=== PATIENT | male | born 1955 | race African-American/Black ===

== ENCOUNTER 2016-10-22 11:14 | Inpatient (IN) | payer BC ==
[~2016-10-22] VITALS: Ht 188 cm; Wt 122.4 kg
[2016-10-22 12:14] LABS: EOSINOPHIL (%) 2.2 % (0-5); EOSINOPHIL COUNT 0.1 K/uL (0-0.3); HEMATOCRIT 37.8 % (38.0-50.0); IMMATURE GRANULOCYTE (%) 0.6 % (0.0-0.7); INSTRUMENT ABS NEUTROPHIL CT 3.8 K/uL; LYMPHOCYTE COUNT 1.1 K/uL (1.0-2.8); MCH 29.5 PG (29.0-34.0); MCHC 34.4 G/DL (30.0-36.0); MCV 85.7 FL (86-99); MEAN PLAT.VOLUME 9.7 uM^3 (9.0-12.4); MONOCYTE (%) 4.9 % (3-12); MONOCYTE COUNT 0.3 K/uL (0-0.8); NEUTROPHIL (%) 71.2 % (45-76); NEUTROPHIL COUNT 3.8 K/uL (1.8-6.4); PLATELET COUNT 213 K/uL (156-360); RBC DIS.WIDTH-CV 13.2 % (11.8-14.6); RBC DIS.WIDTH-SD 41.7 % (39-53); RED BLOOD COUNT 4.41 M/uL (4.00-5.50); WHITE BLOOD COUNT 5.4 K/uL (4.1-10.2)
[2016-10-22 12:25] LABS: AMYLASE 119 IU/L (1-118); CHLORIDE 107 mEq/L (99-109); POTASSIUM 4.6 mEq/L (3.7-5.4); SODIUM 137 mEq/L (136-147)
[2016-10-22 12:27] LABS: GLUCOSE 100 mg/dL (70-99)
[2016-10-22 12:28] LABS: ANION GAP 7 MEQ/L (2-14)
[2016-10-22 12:30] LABS: GFR ESTIMATE (CALCULATED) > 59 mL/min/; SERUM ETHYL ALCOHOL < 10 mg/dL
[2016-10-22 12:31] LABS: UREA NITROGEN (BUN) 11 mg/dL (9-23)
[2016-10-22 12:33] LABS: LIPASE 201 U/L (1.0-51.0)
[2016-10-22] MEDS ORDERED: METFORMIN HCL500 MG PO (13:15)
[2016-10-22] MEDS ORDERED: LISINOPRIL40 MG PO (13:15)
[2016-10-22] MEDS ORDERED: SIMVASTATIN40 MG PO (13:16)
[2016-10-22 18:39] VITALS: BP 177/100
[2016-10-22 19:58] VITALS: BP 167/99
[2016-10-22 23:07] LABS: POINT-OF-CARE METER ID UU14149397
[2016-10-23] VITALS (7 sets, daily range): BP systolic 120–200; BP diastolic 76–106
[2016-10-23 00:51] LABS: ADD MIUA? NO; BILIRUBIN NEGATIVE; BLOOD NEGATIVE; COLOR YELLOW ((YELLOW)); GLUCOSE (STRIP) NEGATIVE; KETONES NEGATIVE; LEUKOCYTES NEGATIVE; NITRITE NEGATIVE; PROTEIN (STRIP) NEGATIVE; SPECIFIC GRAVITY 1.027 (1.000-1.030); UCUL ADDED? NO; UROBILINOGEN 0.2 MG/DL (0.2-1.0)
[2016-10-23 05:42] LABS: AMPHETAMINES QUANT VALUE 0 NG/ML; BARBITUATES QUANT VALUE 0 NG/ML; BENZODIAZEPINES QUANT VALUE 0 NG/ML; BENZODIAZEPINES, URINE SCREEN Negative (200 ng/mL); PHENCYCLIDINE QUANT VALUE 0 NG/ML
[2016-10-23 06:35] LABS: HEMATOCRIT 33.6 % (38.0-50.0); MCH 30.4 PG (29.0-34.0); MCHC 35.1 G/DL (30.0-36.0); MCV 86.6 FL (86-99); MEAN PLAT.VOLUME 10.6 uM^3 (9.0-12.4); PLATELET COUNT 201 K/uL (156-360); RBC DIS.WIDTH-CV 13.5 % (11.8-14.6); RBC DIS.WIDTH-SD 42.2 % (39-53); RED BLOOD COUNT 3.88 M/uL (4.00-5.50)
[2016-10-23 06:40] LABS: WHITE BLOOD COUNT 8.5 K/uL (4.1-10.2)
[2016-10-23 07:10] LABS: ALKALINE PHOSPHATASE 60 IU/L (3-129); ANION GAP 6 MEQ/L (2-14); CHLORIDE 110 MEQ/L (99-109); GFR ESTIMATE (CALCULATED) > 59 mL/min/; GLUCOSE 95 mg/dL (70-99); POTASSIUM 3.8 MEQ/L (3.7-5.4); SAMPLE HEMOLYSIS CHECK 0; SAMPLE ICTERIC CHECK 0; SAMPLE LIPEMIA CHECK 0; SODIUM 135 MEQ/L (136-147); TOTAL BILIRUBIN 0.7 MG/DL (0.0-1.0); UREA NITROGEN (BUN) 9 mg/dL (9-23)
[2016-10-23 09:37] LABS: Estimated Average Glucose 117 mg/dL (70-123)
[2016-10-23 10:14] LABS: HEMOGLOBIN A1c (GLYCOHEMOGLOB) 5.7 % HGB (Below 5.7)
[2016-10-23 15:59] LABS: POINT-OF-CARE METER ID UU13113675
[2016-10-23 22:05] LABS: POINT-OF-CARE METER ID UU14188577
[2016-10-24 04:05] VITALS: BP 137/79
[2016-10-24 07:03] LABS: HEMATOCRIT 31.6 % (38.0-50.0); MCHC 33.9 G/DL (30.0-36.0); MCV 85.6 FL (86-99); MEAN PLAT.VOLUME 10.7 uM^3 (9.0-12.4); PLATELET COUNT 191 K/uL (156-360); RBC DIS.WIDTH-CV 13.2 % (11.8-14.6); RBC DIS.WIDTH-SD 41.2 % (39-53); RED BLOOD COUNT 3.69 M/uL (4.00-5.50); WHITE BLOOD COUNT 9.6 K/uL (4.1-10.2)
[2016-10-24 07:11] LABS: POINT-OF-CARE METER ID UU14188577
[2016-10-24 07:48] LABS: ANION GAP 10 MEQ/L (2-14); CHLORIDE 105 MEQ/L (99-109); GFR ESTIMATE (CALCULATED) > 59 mL/min/; GLUCOSE 87 mg/dL (70-99); POTASSIUM 3.9 MEQ/L (3.7-5.4); SAMPLE HEMOLYSIS CHECK 0; SAMPLE ICTERIC CHECK 0; SAMPLE LIPEMIA CHECK 0; SODIUM 134 MEQ/L (136-147); UREA NITROGEN (BUN) 10 mg/dL (9-23)
[2016-10-24 08:28] VITALS: BP 132/63
[2016-10-24 12:04] VITALS: BP 140/85
[2016-10-24 16:06] VITALS: BP 128/66
[2016-10-24 21:09] VITALS: BP 141/69
[2016-10-24 22:10] LABS: POINT-OF-CARE METER ID UU14188577
[2016-10-25 00:43] VITALS: BP 169/97
[2016-10-25 04:24] VITALS: BP 138/64
[2016-10-25 06:47] LABS: HEMATOCRIT 33.1 % (38.0-50.0); MCHC 35.6 G/DL (30.0-36.0); MCV 84.2 FL (86-99); MEAN PLAT.VOLUME 10.7 uM^3 (9.0-12.4); PLATELET COUNT 228 K/uL (156-360); RBC DIS.WIDTH-CV 12.9 % (11.8-14.6); RED BLOOD COUNT 3.93 M/uL (4.00-5.50); WHITE BLOOD COUNT 9.3 K/uL (4.1-10.2)
[2016-10-25 06:52] LABS: POINT-OF-CARE METER ID UU14188577
[2016-10-25 07:17] LABS: ANION GAP 9 MEQ/L (2-14); CHLORIDE 99 MEQ/L (99-109); GFR ESTIMATE (CALCULATED) > 59 mL/min/; POTASSIUM 3.9 MEQ/L (3.7-5.4); SAMPLE HEMOLYSIS CHECK 0; SAMPLE ICTERIC CHECK 0; SAMPLE LIPEMIA CHECK 0; SODIUM 131 MEQ/L (136-147); UREA NITROGEN (BUN) 11 mg/dL (9-23)
[2016-10-25 07:19] LABS: GLUCOSE 116 mg/dL (70-99)
[2016-10-25 08:17] VITALS: BP 173/100
[2016-10-25 11:21] LABS: POINT-OF-CARE METER ID UU14188577
[2016-10-25 12:17] VITALS: BP 163/99
[2016-10-25] MEDS ORDERED: LEVOFLOXACIN750 MG PO (13:00)
[2016-10-25] MEDS ORDERED: OXYCODONE HCL5 MG PO (13:00)
[2016-10-25] MEDS ORDERED: OXYCONTIN15 MG PO (13:00)
[2016-10-25] MEDS ORDERED: METOPROLOL SUCC25 MG PO (13:00)
[2016-10-25] MEDS ORDERED: SENNA LAX8.6 MG PO (13:00)
== END 2016-10-25 14:18 | disposition home or self-care (01) | DRG 511 ==
LOC: TRA 11:14 → 3EAST 15:13 → EDOF 15:13 → 3EAST 18:17
PROVIDERS: Emergency Medicine; Internal Medicine; Surgery
DX: S62.101A Fracture of unspecified carpal bone, right wrist, initial encounter for closed fracture (principal); S62.102A Fracture of unspecified carpal bone, left wrist, initial encounter for closed fracture; I71.2 Thoracic aortic aneurysm, without rupture; S06.2X0A Diffuse traumatic brain injury without loss of consciousness, initial encounter; S93.402A Sprain of unspecified ligament of left ankle, initial encounter; E11.9 Type 2 diabetes mellitus without complications; J95.4 Chemical pneumonitis due to anesthesia; S52.613A Displaced fracture of unspecified ulna styloid process, initial encounter for closed fracture; S02.2XXA Fracture of nasal bones, initial encounter for closed fracture; S02.40CA Maxillary fracture, right side, initial encounter for closed fracture; S02.31XA Fracture of orbital floor, right side, initial encounter for closed fracture; S01.511A Laceration without foreign body of lip, initial encounter; S02.401A Maxillary fracture, unspecified side, initial encounter for closed fracture; S03.2XXA Dislocation of tooth, initial encounter; E78.5 Hyperlipidemia, unspecified; K08.89 Other specified disorders of teeth and supporting structures; W11.XXXA Fall on and from ladder, initial encounter; R00.0 Tachycardia, unspecified; Z68.34 Body mass index [BMI] 34.0-34.9, adult; F11.10 Opioid abuse, uncomplicated; F12.10 Cannabis abuse, uncomplicated; F17.210 Nicotine dependence, cigarettes, uncomplicated; I10 Essential (primary) hypertension; S52.509A Unspecified fracture of the lower end of unspecified radius, initial encounter for closed fracture
CPT/HCPCS: 70450; 70486; 71010; 71260; 72125; 72129; 72132; 73100; 73110; 73610; 74177; 76000; 80048; 80053; 80306 90; 81003; 82150; 82306; 82948; 83036; 83690; 85025; 85027; 86900; 86901; 93005; 94640; 94799; 99281; 99285; C1713; C1769; G0480; J0360; J0690; J1100; J1170; J1644; J1815; J1956; J2250; J2405; J3010; J7030; S0020